=== PATIENT | male | born 1995 | race Caucasian/White ===

== ENCOUNTER 2016-06-05 16:42 | Observation (INO) | payer BC ==
--- NOTE | 2016-06-05 17:00 | EDPHY ---
H & P Stated Complaint: abdominal pain Time Seen by Provider: 06/05/16 16:59 - Personal History Current Tetanus/Diphtheria Vaccine: Yes Current Tetanus Diphtheria and Acellular Pertussis (TDAP): Yes - Medical/Surgical History Hx Asthma: No Hx Chronic Respiratory Disease: No Hx Diabetes: No Hx Cardiac Disease: No Hx Renal Disease: No Hx Cirrhosis: No Hx Alcoholism: No Hx HIV/AIDS: No Hx Splenectomy or Spleen Trauma: No Other PMH: denies - Social History Smoking Status: Never smoked Constitutional: Initial Vital Signs Temperature (C) 36.5 C 06/05/16 16:47 Heart Rate 57 L 06/05/16 16:47 Respiratory Rate 18 06/05/16 16:47 Blood Pressure 152/87 H 06/05/16 16:47 O2 Sat (%) 96 06/05/16 16:47 O2 Delivery Mode Room Air Allergies/Adverse Reactions: No Known Allergies Allergy (Unverified 06/05/16 16:47) Home Medications: Medication Instructions Recorded NK [No Known Home Meds] 06/05/16 Medical Decision Making ED Course/Re-evaluation: CHIEF COMPLAINT: Abdominal pain, nausea HISTORY OF PRESENT ILLNESS: The patient is a 21 y/o male arriving with his family complaining of constant right-sided abdominal pain since 5:30 this morning, about 12 hours ago. He felt normal yesterday. He describes the pain as a band across the middle of his abdomen, but worse in the RLQ. He has some associated nausea, but no vomiting, diarrhea, or fever. He cannot identify any alleviating factors. No pertinent medical history. He denies prior abdominal surgeries or trauma to his abdomen. Last PO intake was 1/2 yogurt around 9:00 this morning. REVIEW OF SYSTEMS: A 10 point review of systems was performed and is negative with the exception of the elements mentioned in the history of present illness. PHYSICAL EXAM: HR, BP, O2 Sat, RR. Temp noted General Appearance: Alert, well hydrated, appropriate, and non-toxic appearing. Head: Atraumatic without scalp tenderness or obvious injury Eyes: Pupils equal, round, reactive to light and accommodation, EOMI, no trauma , no injection. Ears: Clear bilaterally, no perforation, normal landmarks Nose: Atraumatic, no rhinorrhea, clear. Throat: There is no erythema or exudates, no lesions, normal tonsils, mucus membranes moist. Neck: Supple, 2+ carotid upstroke, nontender, no lymphadenopathy. Respiratory: No retractions, no distress, no wheezes, and no accessory muscle use. Lungs are clear to auscultation bilaterally. Cardiovascular: Regular rate and rhythm, no murmurs, rubs, or gallops. Bilateral carotid, radial, dorsalis pedis, and posterior tibial pulses intact. Good capillary refill all extremities. Gastrointestinal: Abdomen is soft, mild RLQ tenderness, non-distended, no masses, no rebound, no guarding, no peritoneal signs. Musculoskeletal: Normal active ROM of all extremities, atraumatic. Neurological: Alert, appropriate, and interactive. The patient has normal DTRs and non-focal cranial nerves, motor, sensory, and cerebellar exam. Skin: No rashes, good turgor, no nodules on palpation. Past medical history: Denies Past surgical history: Denies Family history: Noncontributory Social history: Family at bedside DIAGNOSTICS/PROCEDURES/CRITICAL CARE TIME: Study: Abdominal CT Indication: Pain Results: CT scan of the abdomen was obtained. The results of the study are 1. Acute appendicitis. 2. No associated pneumoperitoneum, bowel obstruction or drainable abscess. The study was read by the radiologist, Dr. Millan. I viewed the images myself on the PACS system. DIFFERENTIAL DIAGNOSIS: The differential diagnosis for the patient's abdominal pain included but was not limited to appendicitis, cholecystitis, hernias, testicular torsion, gastritis, and urinary tract infection. MEDICAL DECISION MAKING: This is a healthy 21 y/o male presenting with acute, constant RLQ abdominal pain and nausea for the last 12 hours. No prior history. He has reproducible tenderness over McBurney's point on exam. His story and presentation is suspicious for appendicitis. Plan for IV, labs, and abdominal CT. He declines pain medication at this time. 1803: CT shows acute appendicitis. Surgery paged. 1806: Consulted with Dr. Hughes, surgeon, he will assess patient in the ED. 2L IV NS and 1gm IV Ertapenem administered. I discussed findings and plan with the patient. He agrees with plan. Dr. Hughes will take patient to surgery tonight. - Data Points Laboratory Results: Laboratory Results 06/05/16 17:00 06/05/16 17:00 06/05/16 17:00 WBC 14.73 H 10^3/uL (3.80-9.50) RBC 5.33 10^6/uL (4.40-6.38) Hgb 17.6 H g/dL (13.7-17.5) Hct 48.3 % (40.0-51.0) MCV 90.6 fL (81.5-99.8) MCH 33.0 pg (27.9-34.1) MCHC 36.4 g/dL (32.4-36.7) RDW 11.7 % (11.5-15.2) Plt Count 225 10^3/uL (150-400) MPV 9.8 fL (8.7-11.7) Neut % (Auto) 86.2 H % (39.3-74.2) Lymph % (Auto) 6.5 L % (15.0-45.0) [place] % (Auto) 6.4 % (4.5-13.0) Eos % (Auto) 0.1 L % (0.6-7.6) Baso % (Auto) 0.3 % (0.3-1.7) Nucleat RBC Rel Count 0.0 % (0.0-0.2) Absolute Neuts (auto) 12.69 H 10^3/uL (1.70-6.50) Absolute Lymphs (auto) 0.96 L 10^3/uL (1.00-3.00) Absolute Monos (auto) 0.95 H 10^3/uL (0.30-0.80) Absolute Eos (auto) 0.02 L 10^3/uL (0.03-0.40) Absolute Basos (auto) 0.04 10^3/uL (0.02-0.10) Absolute Nucleated RBC 0.00 10^3/uL (0-0.01) Immature Gran % 0.5 % (0.0-1.1) Immature Gran # 0.07 10^3/uL (0.00-0.10) Sodium 139 mEq/L (134-144) Potassium 4.6 mEq/L (3.5-5.2) Chloride 101 mEq/L (97-110) Carbon Dioxide 27 mEq/l (22-31) Anion Gap 11 mEq/L (8-16) BUN 13 mg/dL (7-23) Creatinine 0.8 mg/dL (0.7-1.3) Estimated GFR > 60 Glucose 108 H mg/dL (70-100) Calcium 9.9 mg/dL (8.5-10.4) Medications Given: Discontinued Medications Sodium Chloride (Ns) 1,000 mls @ 0 mls/hr IV ONCE ONE PRN Reason: Wide Open Stop: 06/05/16 17:14 Last Admin: 06/05/16 17:15 Dose: 1,000 mls Ertapenem 1 gm/ Sodium (Chloride) 100 mls @ 200 mls/hr IV EDNOW ONE PRN Reason: Protocol Stop: 06/05/16 18:32 Last Admin: 06/05/16 18:20 Dose: 100 mls Sodium Chloride (Ns) 1,000 mls @ 0 mls/hr IV ONCE ONE PRN Reason: Wide Open Stop: 06/05/16 18:21 Last Admin: 06/05/16 18:20 Dose: 1,000 mls Departure - Departure Disposition: [facility] Inpatient Acute Clinical Impression: Acute appendicitis Qualifiers: Acute appendicitis type: with generalized peritonitis Qualifier Code: (K35.2) Acute appendicitis with generalized peritonitis Condition: Good Report Scribed for: Nimesh Randall Report Scribed by: Rosa Maria Flores Date of Report: 06/05/16 Time of Report: 19:11
[2016-06-05] MEDS ORDERED: NS 1,000 ML IV ONE ×2 (17:13→18:20)
[2016-06-05 17:18] LABS: % IMMATURE GRANULYOCYTES 0.5 % (0.0-1.1); ABSOLUTE IMMATURE GRANULOCYTES 0.07 10^3/uL (0.00-0.10); ADD DIFF? NO; ADD MORPH? NO; ADD SCAN? NO; ATYPICAL LYMPHOCYTE FLAG 0 (0-99); FRAGMENT RBC FLAG 0 (0-99); HEMATOCRIT 48.3 % (40.0-51.0); HEMOGLOBIN 17.6 g/dL (13.7-17.5); LEFT SHIFT FLG 0 (0-99); LIPEMIA HEMOLYSIS FLAG 90 (0-99); MEAN CELL HEMOGLOBIN CONCENTR. 36.4 g/dL (32.4-36.7); MEAN CELL VOLUME 90.6 fL (81.5-99.8); MEAN PLATELET VOLUME 9.8 fL (8.7-11.7); PLATELET CLUMPS FLAG 20 (0-99); PLATELET COUNT 225 10^3/uL (150-400); RED BLOOD CELL COUNT 5.33 10^6/uL (4.40-6.38); RED CELL DISTRIBUTION WIDTH 11.7 % (11.5-15.2)
[2016-06-05 17:24] LABS: ANION GAP 11 mEq/L (8-16); CALCIUM 9.9 mg/dL (8.5-10.4); CARBON DIOXIDE 27 mEq/l (22-31); CHLORIDE 101 mEq/L (97-110); CREATININE 0.8 mg/dL (0.7-1.3); GLOMERULAR FILTRATION RATE > 60; GLUCOSE 108 mg/dL (70-100); POTASSIUM 4.6 mEq/L (3.5-5.2); SODIUM 139 mEq/L (134-144)
[2016-06-05] MEDS ORDERED: IOPAMIDOL (ISOVUE-300) 100 ML BTL IV ONE (17:31)
[2016-06-05] MEDS ORDERED: ERTAPENEM 1 GM in NS 100 ML IV ONE (18:03)
--- NOTE | 2016-06-05 18:04 | CT ---
CT Scan of the Abdomen and Pelvis (With Contrast) at 1745 hours History: Lower Abd Pain Comparison: None. Technique: Axial computed tomographic images of the abdomen and pelvis were obtained with the unevent ful intravenous administration of 90 mL Isovue-300 contrast. No oral or rectal contrast which limits the study. Dose reduction techniques were utilized. CT Abdomen Findings: Lung bases: No pleural effusion.. Liver: Normal. Biliary system: No obstruction. Spleen: Normal. Pancreas: Normal. Adrenals: Normal. Kidneys: No obstruction or solid masses.. Abdominal Aorta: No aneurysm. No bowel obstruction, ascites, or significant retroperitoneal lymphadenopathy. CT Pelvis Findings: Appendix is thickening up to 12 mm with appendicolith and central edema consisten t with acute appendicitis, images 195 through 209 of series 4. No drainable abscess or pneumoperitone um. Moderate fluid in the ascending colon nonspecific. Impression: 1. Acute appendicitis. 2. No associated pneumoperitoneum, bowel obstruction or drainable abscess. Findings and recommendations discussed with Emergency Department physician, Nimesh Randall MD at 1 8:03 hour, 06/05/2016. Final report concurs with initial preliminary interpretation.
[2016-06-05] MEDS ORDERED: HEPARIN 5,000 UNIT/0.5 ML SYR ONE (18:55)
[2016-06-05] MEDS ORDERED: ceFAZolin 1 GM VIAL ONE (18:55)
[2016-06-05] MEDS ORDERED: SKIN ADHESIVE (DERMABOND) 1 EACH TP ONE (19:03)
[2016-06-05] MEDS ORDERED: MIDAZOLAM 2 MG/2 ML VIAL ONE (19:09)
[2016-06-05] MEDS ORDERED: fentaNYL 100 MCG/2 ML INJ ONE ×3 (19:13→20:45)
[2016-06-05] MEDS ORDERED: PROPOFOL 200 MG/20 ML VIAL ONE ×2 (19:14)
[2016-06-05] MEDS ORDERED: LIDOCAINE 2% 100 MG/5 ML SYR IVP ONE (19:17)
--- NOTE | 2016-06-05 19:22 | GHP ---
[f rep st] HISTORY AND PHYSICAL DATE OF ADMISSION: 06/05/2016 ADMITTING DIAGNOSIS: Acute appendicitis with appendicoliths. 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 this morning and noticed a generalized abdominal discomfort. He thought it could be gas. He tried eating to see if that would make it better. He had a half cup of yogurt which is less than he usually eats and became immediately full. The pain became constant and slowly moved out from the periumbilical region to the hypogastric region about noon. He did try some mag citrate this morning to see if that would make him better, it did not. He had nausea at both 10 a.m. and 3 p.m., but no vomiting. He has had an upper respiratory tract infection for the last 2 weeks. There is no history of diarrhea, travel or antibiotic use. There is no history of inflammatory bowel disease or prior abdominal surgeries. He did have a similar episode 2 years ago that lasted 12 hours. SOCIAL HISTORY: He never smoked. He drinks approximately 5 beers a week. ALLERGIES: He has no known drug allergies. MEDICATIONS: He does take Motrin and Tylenol. PAST SURGICAL HISTORY: He has only had a wisdom tooth extraction in the past. PAST MEDICAL HISTORY: There is no history of rheumatic fever, tuberculosis, hepatitis, transfusions or HIV. REVIEW OF SYSTEMS: He wears lenses for visual correction or contacts. He has a lower jaw retainer. Review of systems otherwise quite negative. There are no limits on his activities and no history of steroid use. PHYSICAL EXAMINATION: GENERAL: He is awake and alert, in mild distress. HEENT : Skull is normocephalic and atraumatic. There is no cervical, supraclavicular , axillary or inguinal lymphadenopathy. NECK: Thyroid is not enlarged. BACK: Unremarkable to examination. LUNGS: Clear to auscultation. CARDIAC: Shows S1, S2 to be normal. There is a normal split of S2 without murmurs, rubs, or gallops. ABDOMEN: Slightly distended. He has hypoactive bowel sounds. Psoas and obturator signs are negative. He is tender with cough about 3 fingerbreadths below McBurney point and that is a 2 on a scale of 1-10. To palpation, his left upper quadrant is 1 on a scale of 1-10, the mid abdomen is 1 , left lower quadrant is 1, epigastrium is 1, periumbilical area is 1, suprapubic area is 1, right upper quadrant is 1, right mid abdomen is 2, right lower quadrant is 4. LABORATORY DATA: His white blood cell count is 14.3, hematocrit 48, neutrophils 86%. His glucose is 108. He does have appendix with [address] There is slight hyperemia of the wall. No periappendiceal stranding. Appendix is dilated. There is no fluid in the pelvis. IMPRESSION: Patient with acute appendicitis with appendicoliths. PLAN: A laparoscopic appendectomy. He understands the planned procedure and wishes to proceed as outlined. /[id number]/MODL MTDD
[2016-06-05] MEDS ORDERED: ONDANSETRON 4 MG/2 ML VIAL ONE (19:28)
[2016-06-05] MEDS ORDERED: DEXAMETHASONE 4 MG/ML VIAL ONE (19:29)
[2016-06-05] MEDS ORDERED: ROCURONIUM 50 MG/5 ML VIAL ONE (19:39)
[2016-06-05] MEDS ORDERED: SUGAMMADEX SODIUM 200 MG/2 ML VIAL IVP ONE (20:01)
[2016-06-05] MEDS ORDERED: KETOROLAC 30 MG/1 ML SDV ONE (20:01)
--- NOTE | 2016-06-05 20:31 | POSTOPPROG ---
Post Op Note Date of Operation: 06/05/16 Surgeon: Daniel Hughes Anesthesia: GET(General Endotracheal) Pre-op Diagnosis: acute appendicitis with 3 appendoliths Post-op Diagnosis: acute appendicitis with 3 appendoliths with mesenteric adenitis Indication: acute appendicitis with 3 appendoliths Procedure: laparoscopic appendectomy Findings: acute appendicitis with 3 appendoliths with mesenteric adenitis Inf/Abcess present in the surg proc area at time of surgery?: No EBL: Minimal Complications: none Specimen(s): appendix
[2016-06-05] MEDS ORDERED: ONDANSETRON 4 MG/2 ML VIAL IVP PRN (20:32)
[2016-06-05] MEDS ORDERED: HYDROmorphONE/DILAUDID 1 MG/ML SYR IVP PRN (20:32)
[2016-06-05] MEDS: LR 1,000 ML IV SCH (21:15)
[2016-06-05] MEDS: ACETAMINOPHEN 500 MG TAB PO SCH (21:30)
--- NOTE | 2016-06-05 22:33 | GOP ---
[f rep st] OPERATIVE REPORT DATE OF OPERATION: 06/05/2016 SURGEON: Daniel Hughes MD PREOPERATIVE DIAGNOSIS: Acute appendicitis with 3 appendicoliths. POSTOPERATIVE DIAGNOSIS: Acute appendicitis with 3 appendicolith and mesenteric adenitis. PROCEDURE PERFORMED: Laparoscopic appendectomy. FINDINGS: Acute appendicitis with 3 appendicoliths and mesenteric adenitis. There is no deep absces s identified. ESTIMATED BLOOD LOSS: Minimal. INDICATIONS: Acute appendicitis with 3 appendicoliths. DESCRIPTION OF PROCEDURE: The patient was placed on the operating table in supine position. After i nduction of adequate general endotracheal anesthesia, his abdomen was clipped, prepped and draped. A surgical time-out was carried out and agreed to by all members of the operative team. A curvilinear incision was planned at the umbilicus. The skin was sharply incised and dissected down to the rectus sheath. The rectus sheath was elevated on either side of the midline. The midline fascia was incised sharply . A pursestring of 0 PDS was placed. An 11/12 mm disposable Celena trocar was positioned and intraabdominal insufflation was carried out t o 15 mmHg. The patient was placed in Trendelenburg position. A 5 mm left lower quadrant oblique inc ision is made and a port was placed through this site. A 2nd port was placed through a transverse fields prapubic incision. There was no fluid in the pelvis. The appendix was coiled in the right pericolic space. Adhesions o f the cecum and terminal ileum and to the right sidewall were carefully taken down with the Harmonic Scalpel. The appendix was now elevated. A window was created in the mesoappendix using the Harmonic Scalpel. The mesoappendix was now divided completely. The appendix was elevated at the level of the cecum. A 5 mm EndoGIA stapler was placed across the ce cum and fired. A minimal attachment remained laterally which was cut with the Harmonic Scalpel. The appendix was removed in an EndoCatch bag via the umbilical port site. Pneumoperitoneum was re-estab lished. An Endoloop was used to ensure a secure closure to the lateral end of the staple line. Irrigation with heparin and Ancef-containing irrigant is carried out. The small bowel was run for a distance of 3 feet. There was no evidence of Meckel diverticulum. The re was, however, extensive mesenteric adenitis. Ports were now removed under direct vision. Two sutures of 0 PDS were placed to approximate the midl ine fascia. The pursestring was now secured. Irrigation with heparin and Ancef-containing irrigant was carried out. Hemostasis was excellent in the subcutaneous space. The skin was closed at all 3 i ncision sites with inverted simple sutures of 4-0 Vicryl. Mastisol and Steri-Strips were placed. Ba nd-Aids were positioned. The patient was transferred to recovery in stable and satisfactory conditio n. COMPLICATIONS: None. DRAINS: No drains were placed. /[id number]/MODL
[2016-06-05 23:19] VITALS: RESP 16
[2016-06-06] MEDS: KETOROLAC 15 MG/1 ML SDV IVP SCH ×3 (00:12→12:45)
[2016-06-06] MEDS: ACETAMINOPHEN 500 MG TAB PO SCH ×2 (06:21→13:44)
[2016-06-06] MEDS: LR 1,000 ML IV SCH (06:25)
[2016-06-06] MEDS ORDERED: FLU VACC QS 2016-17(3-64YR)/PF 0.5 ML SYR (FLUARIX QUAD) IM ONE ×2 (09:46→13:30)
--- NOTE | 2016-06-06 11:01 | SOAPPROG ---
SOAP Progress Note Assessment/Plan: POD#1 06/06/16 10:57 Assessment: Doing well! Pain controlled, eating, moving bowels Plan: Home if tolerates lunch Subjective: no complaints Objective: Vital Signs Temp Pulse Resp BP Pulse Ox 36.6 C 50 L 16 111/56 L 95 06/06/16 07:19 06/06/16 07:19 06/06/16 07:19 06/06/16 07:19 06/06/16 07:19 06/05/16 06/06/16 06/07/16 05:59 05:59 05:59 Intake Total 3610 360 Output Total 2004 300 Balance 1605 60 - Time Spent With Patient Time Spent With Patient: 15 - Pending Discharge Pending Discharge Within 24 Hours: Yes Pending Discharge Date: 06/07/16 Pending Discharge Time: 11:00 Physical Exam - Physical Exam General Appearance: WD/WN, alert, no apparent distress Neck: non-tender, full range of motion, supple Respiratory: chest non-tender, lungs clear, normal breath sounds Cardiac/Chest: regular rate, rhythm Abdomen: normal bowel sounds, non-tender, soft Male Genitalia: deferred Rectal: deferred Back: Normal inspection Skin: normal color, warm/dry Extremities: normal range of motion Neuro/Psych: no motor/sensory deficits, alert, normal mood/affect ICD10 Worksheet Patient Problems: Problems Problem Status Diagnosed Acute appendicitis Acute
[2016-06-06 11:47] VITALS: TEMP 97.7
--- NOTE | 2016-06-06 13:49 | GDS ---
[f rep st] DISCHARGE SUMMARY DISCHARGE DIAGNOSES: Acute appendicitis with appendocoliths and mesenteric adenitis PROCEDURE: Laparoscopic appendectomy. CONDITION ON DISCHARGE: Improved. DISPOSITION: Home. DIET: Unrestricted, but I have suggested that he avoid constipating foods such as bananas, rice, applesauce, and cheese. DISCHARGE MEDICATIONS: I suggest he take a multivitamin with zinc, copper and C daily. For pain control, he will take Tylenol 1 g every 8 hours. He will take Motrin 200 mg every 6 hours. For breakthrough pain, he will use Dilaudid 2 mg every 4 hours. DISCHARGE INSTRUCTIONS: He will lift less than 10 pounds for the next 3 weeks. Shower only. Keep the Steri-Strips in place. He will watch for signs of infection. He is to follow up with Dr. Elmer Yu 's office in 2 weeks as needed. Advised not to drive for 10 days. Hospital course has been unremarkable. He was taken to surgery where an appendectomy was performed for an acute nonruptured appendicitis. He did have mesenteric adenitis and appendicoliths. He is set for discharge on postoperative day #1. /[id number]/MODL MTDD
[2016-06-06 15:37] VITALS: BP 120/75; PULSE 58; O2SAT 93
== END 2016-06-06 16:33 | disposition home or self-care (01) ==
LOC: F3E 21:00
PROVIDERS: ADMIT Surgery; ATTEND Surgery
PROC: 0DTJ4ZZ Resection of Appendix, Percutaneous Endoscopic Approach (ICD-10-PCS; principal; 2016-06-05 19:17)
DX: K35.2 Acute appendicitis with generalized peritonitis (principal); I88.0 Nonspecific mesenteric lymphadenitis; Z23 Encounter for immunization
CPT/HCPCS: 44970; 74177; 90471; G0378; 96365; G0008; J0690; J1100; J1170; J1335; J1885; J2001; J2250; J2405; J2704; J3010; Q9967